=== PATIENT | female | born 1985 | race Caucasian/White ===

== ENCOUNTER → 2016-08-22 | Outpatient (REF) | payer BC ==
[2016-08-22 11:00] LABS: BASO % 0.6 % (0.0-1.0); EOS # 0.1 K/mm3 (0.0-0.50); EOS % 2.8 % (0.0-3.0); LARGE UNSTAINED CELL # 0.1 K/mm3 (0.0-0.4); LARGE UNSTAINED CELL % 1.8 % (0.0-4.0); LYMPH # 1.4 K/mm3 (1.5-4.5); LYMPH % 27.2 % (24.0-44.0); MEAN CORPUSCULAR HEMOGLOBIN 28.5 pg (27.0-33.0); MEAN CORPUSCULAR HGB CONC 33.6 g/dl (32.0-36.5); MEAN CORPUSCULAR VOLUME 84.8 fl (80.0-96.0); MONO # 0.3 K/mm3 (0.0-0.8); MONO % 6.4 % (0.0-5.0); NEUTROPHILS # 2.9 K/mm3 (1.8-7.7); NEUTROPHILS % 61.2 % (36.0-66.0); PLATELET COUNT, AUTOMATED 179 k/mm3 (150-450); RED CELL DISTRIBUTION WIDTH 12.3 % (11.5-14.5); WHITE BLOOD COUNT 4.7 K/mm3 (4.0-10.0)
[2016-08-22 11:07] LABS: ANION GAP 4 MEQ/L (8-16); BLOOD UREA NITROGEN 15 MG/DL (7-18); CALCIUM LEVEL 8.2 MG/DL (8.5-10.1); CARBON DIOXIDE LEVEL 30 MEQ/L (21-32); CHLORIDE LEVEL 108 MEQ/L (98-107); CREATININE FOR GFR 0.64 MG/DL (0.55-1.02); FREE T4 1.03 NG/DL (0.76-1.46); GLOMERULAR FILTRATION RATE > 60.0 (>60); GLUCOSE, FASTING 83 MG/DL (70-105); MAGNESIUM LEVEL 2.4 MG/DL (1.8-2.4); POTASSIUM SERUM 4.1 MEQ/L (3.5-5.1); SODIUM LEVEL 142 MEQ/L (136-145)
== END ==
LOC: M SFHCPLAZ 08:09
PROVIDERS: ATTEND Nurse Practitioner Family
DX: R53.83 Other fatigue (principal); R00.2 Palpitations

== ENCOUNTER → 2017-09-11 | Outpatient (REF) | payer BC ==
[2017-09-11 11:26] LABS: BASO % 0.4 % (0.0-1.0); EOS # 0.1 10^3/uL (0.0-0.50); EOS % 2.2 % (0.0-3.0); HEMOGLOBIN 14.5 g/dl (12.0-16.0); IMMATURE GRANULOCYTE % 0.2 % (0-3.0); LYMPH # 1.4 10^3/uL (1.5-4.5); LYMPH % 29.4 % (24.0-44.0); MEAN CORPUSCULAR HEMOGLOBIN 28.3 pg (27.0-33.0); MEAN CORPUSCULAR VOLUME 85.8 fl (80.0-96.0); MONO # 0.3 10^3/uL (0.0-0.8); MONO % 5.5 % (0.0-5.0); NEUTROPHILS # 3.1 10^3/uL (1.8-7.7); NEUTROPHILS % 62.3 % (36.0-66.0); PLATELET COUNT, AUTOMATED 202 10^3/uL (150-450); RED BLOOD COUNT 5.13 10^6/uL (4.00-5.40); RED CELL DISTRIBUTION WIDTH 12.3 % (11.5-14.5); WHITE BLOOD COUNT 4.9 10^3/uL (4.0-10.0)
[2017-09-11 11:53] LABS: ALBUMIN 4.1 GM/DL (3.2-5.2); ALBUMIN/GLOBULIN RATIO 1.52 (1.00-1.93); ALKALINE PHOSPHATASE 41 U/L (45-117); ALT/SGPT 21 U/L (12-78); ANION GAP 10 MEQ/L (8-16); AST/SGOT 10 U/L (7-37); BILIRUBIN,TOTAL 0.7 MG/DL (0.2-1.0); BLOOD UREA NITROGEN 11 MG/DL (7-18); CALCIUM LEVEL 8.4 MG/DL (8.5-10.1); CARBON DIOXIDE LEVEL 25 MEQ/L (21-32); CHLORIDE LEVEL 106 MEQ/L (98-107); CHOLESTEROL LEVEL 151 MG/DL (<200); CHOLESTEROL RISK RATIO 2.696 (<5); CREATININE FOR GFR 0.59 MG/DL (0.55-1.30); FREE T4 1.22 NG/DL (0.76-1.46); GLOMERULAR FILTRATION RATE > 60.0 (>60); GLUCOSE, FASTING 76 MG/DL (70-100); HDL CHOLESTEROL 56 MG/DL (>40); NON-HDL-C 95 MG/DL; POTASSIUM SERUM 3.9 MEQ/L (3.5-5.1); SODIUM LEVEL 141 MEQ/L (136-145); TOTAL PROTEIN 6.8 GM/DL (6.4-8.2); TRIGLYCERIDES LEVEL 55 MG/DL (<150)
[2017-09-11 12:26] LABS: TOTAL 25(OH) VITAMIN D 35.1 NG/ML (30.0-100.0)
== END ==
LOC: M SFHCPLAZ 08:32
DX: Z00.00 Encounter for general adult medical examination without abnormal findings (principal); F41.9 Anxiety disorder, unspecified; Z13.220 Encounter for screening for lipoid disorders; E55.9 Vitamin D deficiency, unspecified
CPT/HCPCS: 84443

== ENCOUNTER → 2017-11-04 | Outpatient (CLI) | payer BC | LOC: M RAD 10:10 | DX: N63.42 Unspecified lump in left breast, subareolar (principal) | CPT/HCPCS: 77065 ==

== ENCOUNTER → 2018-04-16 | Outpatient (REF) | payer BC | LOC: M SFHCPLAZ 16:18 | DX: Z53.9 Procedure and treatment not carried out, unspecified reason (principal) ==

== ENCOUNTER → 2018-04-17 | Outpatient (REF) | payer BC ==
[2018-04-17 12:23] LABS: BASO % 0.3 % (0.0-1.0); EOS # 0.2 10^3/uL (0.0-0.50); EOS % 3.3 % (0.0-3.0); HEMATOCRIT 41.1 % (36.0-47.0); HEMOGLOBIN 13.4 g/dl (12.0-15.5); IMMATURE GRANULOCYTE % 0.2 % (0-3.0); LYMPH # 1.2 10^3/uL (1.5-4.5); LYMPH % 20.1 % (24.0-44.0); MEAN CORPUSCULAR HEMOGLOBIN 28.6 pg (27.0-33.0); MEAN CORPUSCULAR HGB CONC 32.6 g/dl (32.0-36.5); MEAN CORPUSCULAR VOLUME 87.8 fl (80.0-96.0); MONO # 0.5 10^3/uL (0.0-0.8); MONO % 8.8 % (0.0-5.0); NEUTROPHILS # 3.9 10^3/uL (1.8-7.7); NEUTROPHILS % 67.3 % (36.0-66.0); PLATELET COUNT, AUTOMATED 182 10^3/uL (150-450); RED BLOOD COUNT 4.68 10^6/uL (4.00-5.40); RED CELL DISTRIBUTION WIDTH 12.1 % (11.5-14.5); WHITE BLOOD COUNT 5.8 10^3/uL (4.0-10.0)
[2018-04-17 13:07] LABS: ALBUMIN 3.6 GM/DL (3.2-5.2); ALBUMIN/GLOBULIN RATIO 1.29 (1.00-1.93); ALKALINE PHOSPHATASE 44 U/L (45-117); ALT/SGPT 21 U/L (12-78); AMYLASE 46 U/L (25-115); ANION GAP 9 MEQ/L (8-16); AST/SGOT 13 U/L (7-37); BILIRUBIN,TOTAL 0.5 MG/DL (0.2-1.0); BLOOD UREA NITROGEN 16 MG/DL (7-18); CALCIUM LEVEL 8.4 MG/DL (8.5-10.1); CARBON DIOXIDE LEVEL 26 MEQ/L (21-32); CHLORIDE LEVEL 107 MEQ/L (98-107); CREATININE FOR GFR 0.72 MG/DL (0.55-1.30); GLOMERULAR FILTRATION RATE > 60.0 (>60); GLUCOSE, FASTING 62 MG/DL (70-100); LIPASE 149 U/L (73-393); POTASSIUM SERUM 4.2 MEQ/L (3.5-5.1); SODIUM LEVEL 142 MEQ/L (136-145); TOTAL PROTEIN 6.4 GM/DL (6.4-8.2)
== END ==
LOC: M SFHCPLAZ 09:17
DX: R10.12 Left upper quadrant pain (principal); R10.13 Epigastric pain
CPT/HCPCS: 82150

== ENCOUNTER → 2018-04-30 | Outpatient (CLI) | payer BC ==
[~2018-04-30] MED LIST: GASTROGRAFIN SOLUTION 30ML (Q9963) As Ordered; ISOVUE-370 76% 100ML VIAL (Q9967) As Ordered
== END ==
LOC: M RAD 12:28
DX: R10.12 Left upper quadrant pain (principal); R10.13 Epigastric pain; N83.202 Unspecified ovarian cyst, left side
CPT/HCPCS: Q9963

== ENCOUNTER → 2018-09-09 | Outpatient (CLI) | payer BC ==
--- NOTE | 2018-09-09 16:02 | REP ---
Digital diagnostic bilateral mammography with CAD and 3-D tomography as well as focused left breast sonography: History: Lump in the far medial left breast near the sternum 0.5 cm in diameter, cystic in character on palpation. The patient reports a pea-sized lump in this location at approximately 9 o'clock position at the edge of the breast. Comparison mammography and sonography from November 04, 2017 reported dilated retroareolar ducts in the left breast by ultrasound with some internal debris. A follow-up study was recommended. Mammographic findings: A skin marker is affixed to the skin at the site of the palpable lump. Magnified focal spot compression CC, MLO and true ML views of the left breast were obtained in addition to routine views of both breasts. Moderate scattered fibroglandular elements are again seen. No neodensity is seen at the site of the palpable lump mammographically or elsewhere in either breast. Subareolar soft tissues are unremarkable, symmetric, and unchanged. No worrisome skin changes appreciated. Sonographic findings: Focused subareolar sonography is performed as well as sonographic evaluation of the palpable lump 9 o'clock near the chest wall. By ultrasound at 9 o'clock at the level of palpable lump, a normal blood vessel is seen. No mass is seen. Normal costal margin is noted. No cyst is seen. In the retroareolar region, there are minimally dilated ducts seen. The previously noted area of dilated duct containing debris or echogenic material is no longer apparent. Impression: BIRADS category 1 negative mammographic and sonographic findings. No suspicious abnormality. Clinical follow-up is advised. BIRADS 1: BI-RADS ACR category 2 mammogram. Benign Finding. This patient's estimated Tyrer-Cuzick lifetime risk assessment for the breast cancer is 15.1 %. This mammogram was interpreted with the aid of an FDA-approved computer-aided detection system. The patient states she had a clinical breast exam in August 2018. The patient letter being requested is m#2 . Electronically Signed by Senthil Lynch MD 09/09/2018 07:53 P
== END ==
LOC: M RAD 09:03
PROVIDERS: ATTEND Nurse Practitioner Women's Health
DX: N63.22 Unspecified lump in the left breast, upper inner quadrant (principal)
CPT/HCPCS: 76642; 77066; G0279

== ENCOUNTER 2018-11-18 01:16 | Emergency (ER) | payer BC ==
[~2018-11-18] VITALS: Ht 167.6 cm; Wt 77.3 kg
[2018-11-18] MEDS ORDERED: ESCITALOPRAM (01:21)
[2018-11-18] MEDS ORDERED: OMEP-221 (01:21)
[2018-11-18] MEDS ORDERED: NORE0.353 (01:21)
[2018-11-18] MEDS ORDERED: AMOX500T PO (04:14)
[2018-11-18] MEDS ORDERED: AMOXICILLIN 500 MG CAP PO ONE (04:15)
[2018-11-18 04:46] VITALS: BP 120/76
--- NOTE | 2018-11-18 08:36 | REP ---
Chest x-ray: Two views. History: Cough and shortness of breath . Comparison study: Comparison study June 06, 2016 . Findings: The lungs are well inflated and free of infiltrate. The pleural angles are sharp. The heart size is normal. Pulmonary vasculature is not increased. No significant bony abnormality is seen. Impression: Negative chest x-ray. Electronically Signed by Senthil Lynch MD 11/18/2018 08:28 A
== END 2018-11-18 04:49 | disposition home or self-care (01) ==
LOC: M ED 01:16
DX: H66.92 Otitis media, unspecified, left ear (principal); F41.1 Generalized anxiety disorder; K21.9 Gastro-esophageal reflux disease without esophagitis; Z79.899 Other long term (current) drug therapy

== ENCOUNTER → 2019-03-25 | Outpatient (CLI) | payer BC ==
[~2019-03-25] MED LIST changes: +AMOX500T PO; +ESCITALOPRAM; -GASTROGRAFIN SOLUTION 30ML (Q9963) As Ordered; -ISOVUE-370 76% 100ML VIAL (Q9967) As Ordered; +NORE0.353; +OMEP-221
--- NOTE | 2019-03-25 14:22 | REP ---
Maxillofacial CT study without contrast: History: Chronic maxillary sinusitis. CT findings: Preliminary digital cloth designer radiographs are unremarkable. There is mild mucosal thickening affecting the right frontal sinus. Ethmoid and sphenoid air cells are clear. There is partial opacification of the maxillary sinuses bilaterally with fluid and mucous retention cysts in the left maxillary sinus and a small mucous retention cyst in the right maxillary sinus. Mastoid aeration is normal and symmetric. The bony nasal septum deviates somewhat to the right with a small beak. Nasal turbinate and soft tissues are unremarkable. There is mucosal thickening narrowing the ostium of the ostiomeatal complexes bilaterally. Nasal ethmoid recesses are clear. There is no evidence of intraorbital abnormality. The visualized intracranial structures are unremarkable. Impression: Bilateral maxillary sinus disease with ostiomeatal complex mucosal thickening bilaterally. Rightward nasal septal deviation. Mild mucosal thickening in the right frontal sinus. Electronically Signed by Senthil Lynch MD 03/25/2019 04:03 P
== END ==
LOC: M RAD 09:16
PROVIDERS: ATTEND Nurse Practitioner Family
DX: J32.0 Chronic maxillary sinusitis (principal); J34.2 Deviated nasal septum; J32.1 Chronic frontal sinusitis

== ENCOUNTER → 2019-08-11 | Outpatient (REF) | payer BC ==
[2019-08-11 12:08] LABS: ALT/SGPT 23 U/L (12-78); BILIRUBIN,TOTAL 0.4 MG/DL (0.2-1.0); BLOOD UREA NITROGEN 18 MG/DL (7-18); CALCIUM LEVEL 8.3 MG/DL (8.5-10.1); CARBON DIOXIDE LEVEL 30 MEQ/L (21-32); CHLORIDE LEVEL 109 MEQ/L (98-107); CHOLESTEROL LEVEL 161 MG/DL (<200); CHOLESTEROL RISK RATIO 3.156 (<5); CREATININE FOR GFR 0.72 MG/DL (0.55-1.30); GLOMERULAR FILTRATION RATE > 60.0 (>60); GLUCOSE, FASTING 92 MG/DL (70-100); HDL CHOLESTEROL 51 MG/DL (>40); LDL CHOLESTEROL 99 MG/DL (<100); NON-HDL-C 110 MG/DL; POTASSIUM SERUM 4.2 MEQ/L (3.5-5.1); SODIUM LEVEL 142 MEQ/L (136-145); TOTAL PROTEIN 6.6 GM/DL (6.4-8.2); TRIGLYCERIDES LEVEL 53 MG/DL (<150)
== END ==
LOC: M SFHCLERA 08:01
PROVIDERS: ATTEND Family Medicine
DX: Z13.220 Encounter for screening for lipoid disorders (principal); Z13.1 Encounter for screening for diabetes mellitus; Z80.51 Family history of malignant neoplasm of kidney

== ENCOUNTER → 2019-08-24 | Outpatient (REF) | payer BC ==
[2019-08-24 13:40] LABS: APPEARANCE, URINE CLEAR (CLEAR); BACTERIA, URINE AUTO NEGATIVE (NEGATIVE); BILIRUBIN, URINE AUTO NEGATIVE (NEGATIVE); BLOOD, URINE BLOOD NEGATIVE (NEGATIVE); COLOR, URINE YELLOW (YELLOW); GLUCOSE, URINE (UA) AUTO NEGATIVE (NEGATIVE); KETONE, URINE AUTO TRACE mg/dL (NEGATIVE); LEUKOCYTE ESTERASE, URINE AUTO NEGATIVE (NEGATIVE); NITRITE, URINE AUTO NEGATIVE (NEGATIVE); PROTEIN, URINE AUTO NEGATIVE (NEGATIVE); RBC, URINE AUTO 0 /HPF (0-3); SQUAMOUS EPITHELIAL CELL UR AU 0 /HPF (0-6); UROBILINOGEN, URINE AUTO 0.2 mg/dL (0.0-2.0); WBC, URINE AUTO 0 /HPF (0-3)
== END ==
LOC: M SFHCLERA 11:32
PROVIDERS: ATTEND Family Medicine
DX: Z13.220 Encounter for screening for lipoid disorders (principal); Z13.1 Encounter for screening for diabetes mellitus; Z80.51 Family history of malignant neoplasm of kidney

== ENCOUNTER → 2019-11-11 | Outpatient (REF) | payer BC | LOC: M SFHCPLAZ 11:34 | PROVIDERS: ATTEND Family Medicine | DX: E55.9 Vitamin D deficiency, unspecified (principal) ==

== ENCOUNTER → 2020-04-01 | Outpatient (REF) | payer BC ==
[2020-04-01 14:13] LABS: HEMATOCRIT 39.6 % (36.0-47.0); HEMOGLOBIN 13.1 g/dl (12.0-15.5); MEAN CORPUSCULAR HEMOGLOBIN 28.9 pg (27.0-33.0); MEAN CORPUSCULAR HGB CONC 33.1 g/dl (32.0-36.5); MEAN CORPUSCULAR VOLUME 87.4 fl (80.0-96.0); PLATELET COUNT, AUTOMATED 189 10^3/uL (150-450); RED BLOOD COUNT 4.53 10^6/uL (4.00-5.40); WHITE BLOOD COUNT 7.5 10^3/uL (4.0-10.0)
[2020-04-01 15:26] LABS: HEPATITIS C VIRUS ABY INDEX 0.1 INDEX (<0.8); HIV 1&2 SCREEN CENTAUR NEGATIVE (NEGATIVE)
== END ==
LOC: M PLALAB 11:11
PROVIDERS: ATTEND Advanced Practice Midwife
DX: O09.521 Supervision of elderly multigravida, first trimester (principal); Z3A.00 Weeks of gestation of pregnancy not specified

== ENCOUNTER → 2020-06-01 | Outpatient (REF) | payer BC | LOC: M SFHCWAGY 13:14 | PROVIDERS: ATTEND Specialist | DX: R30.0 Dysuria (principal) ==

== ENCOUNTER → 2020-06-14 | Outpatient (REF) | payer BC | LOC: M PLALAB 13:44 | PROVIDERS: ATTEND Obstetrics & Gynecology | DX: Z34.92 Encounter for supervision of normal pregnancy, unspecified, second trimester (principal); Z3A.19 19 weeks gestation of pregnancy ==

== ENCOUNTER → 2020-06-15 | Outpatient (CLI) | payer BC ==
--- NOTE | 2020-06-15 16:50 | REP ---
INDICATION: ANATOMY COMPARISON: None. TECHNIQUE: Transabdominal obstetrical ultrasound with color Doppler evaluation. FINDINGS: Examination demonstrates a single live intrauterine in transverse (head to maternal right) presentation. motion is identified by technologist. Placenta is noted anterior and grade 1 without evidence for placenta previa or abruption. Amniotic fluid volume is normal. Cervix measures 4.7 cm in length and appears closed.. Gestational age by LMP 19 weeks 3 days with ERENDIRA 11/06/2020. Gestational age by current measurements 19 weeks 4 days with ERENDIRA 11/05/2020. FHR equals 149 beats per minute. BPD: 4.7 cm 20 weeks 2 days HC: 17.1 cm 19 weeks 5 days AC: 13.6 cm 19 weeks 0 days FL: 3.1 cm 19 weeks 4 days HL: 2.9 cm 19 weeks 3 days HC/AC: 1.26 Estimated weight 287 grams (43rdpercentile). Anatomical assessment demonstrates normal structures including cranium, choroid plexus, cavum, cerebellum/posterior fossa, facial features, lungs, four-chamber heart/ventricular outflow tracts, diaphragm, stomach, cord insertion/three-vessel cord, kidneys/bladder, spine, and extremities. IMPRESSION: Single live intrauterine in transverse lie demonstrating appropriate estimated weight. Anatomical assessment is complete and normal. <Electronically signed by Kevin Tucker > 06/15/20 [id number]
== END ==
LOC: M WHC 12:48
PROVIDERS: ATTEND Advanced Practice Midwife
DX: Z36.9 Encounter for antenatal screening, unspecified (principal); Z3A.20 20 weeks gestation of pregnancy

== ENCOUNTER → 2020-06-27 | Outpatient (CLI) | payer BC | LOC: M LAB 06:38 | PROVIDERS: ATTEND Obstetrics & Gynecology | DX: R73.09 Other abnormal glucose (principal) ==

== ENCOUNTER → 2020-06-30 | Outpatient (REF) | payer BC ==
[2020-06-30 15:16] LABS: BASO % 0.2 % (0.0-1.0); EOS # 0.1 10^3/uL (0.0-0.5); EOS % 0.9 % (0.0-3.0); HEMATOCRIT 35.9 % (36.0-47.0); HEMOGLOBIN 11.7 g/dl (12.0-15.5); LYMPH # 1.1 10^3/uL (1.5-5.0); LYMPH % 12.8 % (24.0-44.0); MEAN CORPUSCULAR HEMOGLOBIN 29.6 pg (27.0-33.0); MEAN CORPUSCULAR HGB CONC 32.6 g/dl (32.0-36.5); MEAN CORPUSCULAR VOLUME 90.9 fl (80.0-96.0); MONO # 0.3 10^3/uL (0.0-0.8); MONO % 3.9 % (0.0-5.0); NEUTROPHILS # 6.7 10^3/uL (1.5-8.5); PLATELET COUNT, AUTOMATED 188 10^3/uL (150-450); RED BLOOD COUNT 3.95 10^6/uL (4.00-5.40); WHITE BLOOD COUNT 8.2 10^3/uL (4.0-10.0)
[2020-06-30 15:56] LABS: FREE T4 1.14 NG/DL (0.76-1.46); THYROID STIMULATING HORMONE 1.21 uIU/ML (0.358-3.740)
== END ==
LOC: M PLALAB 13:29
PROVIDERS: ATTEND Advanced Practice Midwife
DX: F41.9 Anxiety disorder, unspecified (principal)

== ENCOUNTER → 2020-07-28 | Outpatient (REF) | payer BC ==
[2020-07-28 11:10] LABS: BASO % 0.4 % (0.0-1.0); EOS # 0.1 10^3/uL (0.0-0.5); EOS % 0.6 % (0.0-3.0); HEMATOCRIT 35.6 % (36.0-47.0); HEMOGLOBIN 11.7 g/dl (12.0-15.5); LYMPH # 1.1 10^3/uL (1.5-5.0); LYMPH % 13.6 % (24.0-44.0); MEAN CORPUSCULAR HEMOGLOBIN 29.8 pg (27.0-33.0); MEAN CORPUSCULAR HGB CONC 32.9 g/dl (32.0-36.5); MEAN CORPUSCULAR VOLUME 90.8 fl (80.0-96.0); MONO # 0.4 10^3/uL (0.0-0.8); MONO % 5.1 % (0.0-5.0); NEUTROPHILS # 6.2 10^3/uL (1.5-8.5); NEUTROPHILS % 79.8 % (36.0-66.0); PLATELET COUNT, AUTOMATED 194 10^3/uL (150-450); RED BLOOD COUNT 3.92 10^6/uL (4.00-5.40); WHITE BLOOD COUNT 7.7 10^3/uL (4.0-10.0)
[2020-07-28 11:34] LABS: FREE T4 1.03 NG/DL (0.76-1.46); THYROID STIMULATING HORMONE 1.22 uIU/ML (0.358-3.740)
== END ==
LOC: M PLALAB 08:06
PROVIDERS: ATTEND Advanced Practice Midwife
DX: O99.342 Other mental disorders complicating pregnancy, second trimester (principal); Z3A.21 21 weeks gestation of pregnancy; F41.9 Anxiety disorder, unspecified
CPT/HCPCS: 36415; 82746; 82950; 84439; 84443; 85025; 86850; 86900; 86901; J2790

== ENCOUNTER 2020-09-25 16:37 | Emergency (ER) | payer BC ==
[~2020-09-25] VITALS: Ht 167.6 cm; Wt 80.4 kg
[2020-09-25] MEDS ORDERED: PEPC1TAB5 PO (16:50)
[2020-09-25] MEDS ORDERED: SERT25TA21 (16:50)
[2020-09-25] MEDS ORDERED: BOOSTRIX/ADACEL VACCINE (DIPHTH/PERTUSS/ACELL/TETANUS) 0.5ML SYR IM ONE (18:40)
[2020-09-25 19:02] VITALS: BP 129/73
== END 2020-09-25 19:03 | disposition home or self-care (01) ==
LOC: M ED 16:37
DX: S61.101A Unspecified open wound of right thumb with damage to nail, initial encounter (principal); W27.4XXA Contact with kitchen utensil, initial encounter; Y92.019 Unspecified place in single-family (private) house as the place of occurrence of the external cause; Y93.9 Activity, unspecified; Y99.9 Unspecified external cause status; K21.9 Gastro-esophageal reflux disease without esophagitis; Z79.899 Other long term (current) drug therapy

== ENCOUNTER → 2020-09-28 | Outpatient (CLI) | payer BC ==
[~2020-09-28] MED LIST changes: +PEPC1TAB5 PO; +SERT25TA21
--- NOTE | 2020-09-28 14:20 | REP ---
INDICATION: 34 WKS PREG NON REACTIVE NST BPP W/ DOPPLER. COMPARISON: 06/15/2020. TECHNIQUE: Real-time sonographic evaluation of the gravid uterus performed. FINDINGS: Estimated gestational age is34 weeks 3 days, EDC 11/06/2020. Presentation: Cephalic Placenta anterior, grade grade 1-2, without evidence of placenta previa. heart rate is recorded at 131 beats per minute. heart arrhythmia noted. Amniotic fluid is subjectively normal. LIU 20.5, normal range 8.0-24.8 Biophysical profile score 8/8. Closed cervical length is measured at 3.6 cm. IMPRESSION: Viable single intrauterine gestation as above. <Electronically signed by Jerardo Trammell > 09/28/20 [id number]
== END ==
LOC: M RAD 13:12
PROVIDERS: ATTEND Advanced Practice Midwife
DX: O36.8390 Maternal care for abnormalities of the fetal heart rate or rhythm, unspecified trimester, not applicable or unspecified (principal); Z3A.34 34 weeks gestation of pregnancy

== ENCOUNTER → 2020-10-05 | Outpatient (REF) | payer BC | LOC: M SFHCWAGY 14:53 | PROVIDERS: ATTEND Advanced Practice Midwife | DX: O09.523 Supervision of elderly multigravida, third trimester (principal) ==

== ENCOUNTER 2020-10-18 10:20 | Inpatient (IN) | payer BC ==
[~2020-10-18] VITALS: Ht 167.6 cm; Wt 80.0 kg
[2020-10-18] VITALS (16 sets, daily range): BP systolic 102–121; BP diastolic 53–59
[2020-10-18] MEDS ORDERED: MULTTAB20 PO (10:39)
[2020-10-18] MEDS ORDERED: LACTATED RINGER'S 1000 ML IV STA (11:39)
[2020-10-18] MEDS ORDERED: LR 1,000 ML IV SCH (11:40)
[2020-10-18] MEDS ORDERED: ceFAZolin SOD 2 GM in IV 1 EA IV ONE (12:00)
[2020-10-18] MEDS ORDERED: BICITRA 30ML SOLN UDC PO ONE (12:00)
[2020-10-18 12:10] LABS: HEMATOCRIT 37.6 % (36.0-47.0); HEMOGLOBIN 12.8 g/dl (12.0-15.5); MEAN CORPUSCULAR HEMOGLOBIN 30.7 pg (27.0-33.0); MEAN CORPUSCULAR VOLUME 90.2 fl (80.0-96.0); PLATELET COUNT, AUTOMATED 151 10^3/uL (150-450); RED BLOOD COUNT 4.17 10^6/uL (4.00-5.40); WHITE BLOOD COUNT 8.2 10^3/uL (4.0-10.0)
[2020-10-18] MEDS ORDERED: ACETAMINOPHEN 500 MG TAB PO PRN ×2 (13:50→23:30)
--- NOTE | 2020-10-18 19:54 | HPEPDOC ---
Obstetrical History & Physical General Date of Admission Oct 18, 2020 at 11:06 History of Present Illness Maya is a 34yo with SIUP at 37w2d by lmp c/w early u/s presenting to L&D from clinic for arrhythmia. She was being seen for BPP which she receives weekly since being diagnosed with arrhythmia at 34wk- the BPP was 8/8, but when the medication reconciliation technician was noting the FHR, it was in the 80's. So she was sent for prolonged monitoring and formulation of delivery plan. She is scheduled to be seen for the arrhythmia at the [facility] in a week. She has no complaints today. Feels great movement, no loss of fluid, no regular/painful ctx, no vb. Chief Complaint: Observation Information Provided By: Patient Care Care: Good Care Dating Final EDC: November 06, 2020 Final EDC by: LMP, 1st trimester (US) Antepartum Course Diagnos(e)s AMA (age 34), anxiety (takes zoloft 25mg qd), palpitations (referred to Dr. Lin garcia and had Holter monitoring with no need for medications or further interventions), arrhythmia noted at 34wk on monitoring, Rh negative received rhogam early and at 28wk Past Medical History Past Obstetrical History : Past Obstetrical History: Multigravida (02/2014 male 7lb9oz, 08/2015 female 8lb1oz social IOL) [employer] SERVICE SUPERVISOR History: No pertinent history Past Medical History Medical History seasonal allergies, rosacea, vitamin D deficiency, occasional ocular migraines, anxiety Surgical History: Denies/None Family History Significant Family History: Other (father related to renal cancer) Social History Marital Status: Family situation: Spouse/partner home Psychosocial History: Anxiety * Smoker: former Smoker (quit in 2012) Alcohol: Denies Drugs: denies Allergies Coded Allergies: No Known Allergies (Unverified , 11/18/18) Medications Scheduled Famotidine (Pepcid) 20 Mg Tablet, 20 MG PO DAILY No122/Iron/Folic Acid ( Multi Tablet) 1 Each Tablet, 1 TAB PO DAILY Miscellaneous Medications Sertraline HCl (Sertraline HCl) 25 Mg Tablet Physical Examination Physical Examination GENERAL: Alert and oriented times three. ABDOMEN: Gravid and non-tender to touch. FETUS: Is vertex (VTX) by sterile vaginal examination (SVE) EXTREMITIES: No edema of BLE Vital Signs/I&O Vital Signs Date Time Temp Pulse Resp B/P (MAP) Pulse Ox O2 Delivery O2 Flow Rate FiO2 10/18/20 18:11 99.9 92 18 109/56 (73) Laboratory Data 24H LABS Laboratory Tests 2 10/18/20 11:10: Serology Scanned Report Hepatitis B Testing 10/18/20 11:55: Nucleated Red Blood Cells % (auto) 0.0, Syphilis Serology NONREACTIVE CBC/BMP Laboratory Tests 10/18/20 11:55 Pertinent Laboratoy Data Blood Type: A- RBC Antibody Screen: Positive (anti-D) HIV: Negative Hepatitis B: Negative Hepatitis C: Negative Rapid Plasma Reagin: Nonreactive Rubella: Immune Chlamydia/Gonorrhea: Negative Group B Streptococcus: Negative Glucose Tolerance Test: 93 Anatomy Ultrasound Ultrasound Date: Jun 15, 2020 Placenta Location: Anterior Normal Anatomy: Yes Placenta Previa: No Other Ultrasounds 10/18: BPP 8/8, LIU 15.1cm, slightly elevated SD ratio (3.72), FHR 75-81 bpm Steroid Therapy Steroid Therapy: No Vaginal Examination Dilation: 4 cm Effacement: 50% Station: -2 Cervical Consistency: Medium Cervical Position: Middle Presentation: Cephalic presentation Assessment Heart Rate (FHR): 140 (arrythmia) Variability: Moderate Accelerations: Positive Decelerations: Other (arrhythmia with dropped beats) Tocometer Contractions: Yes Frequency: regular, every 3-7 min. Duration: greater than 60 seconds Strength: palpated as mild Assessment/Plan Assessment Maya is a 34yo with SIUP at 37w2d by lmp c/w early u/s with arrhythmia, first noted at 34wk and still persisting. Vitals wnl, afebrile. Cat II FHRT only for arrhythmia- when there is a consistent tracing, it appears there are accels with mod tru and no decels (just dropped beats). Cephalic. SCE /-2. Plan Admit and orient. Counseled and consented. I spoke with Dr. Almaraz about Maya and the possible options for monitoring and delivery. I then had a long discussion with patient regarding the options. Ultimately, I made my recommendation for delivery today given the limitation of our monitoring and the fact that she is full term at 37+ weeks. I discussed the option of discharge with follow up at [facility] next week as previously planned, but she was in agreement with plan for delivery today. We then discussed the possibility of PLTCS vs IOL. She is a multip having 2 prior NSVDs and her SCE is 4/50/-2 which is very favorable. Given these findings, I discussed that we could attempt AROM with placement of FSE right at the start and see if her body naturally proceeds into labor (discussed we may not be able to augment with pitocin if tracing is not deemed reassuring enough 2/2 arrhyth stacy). We also discussed the option of proceeding to PLTCS and avoiding the need for monitoring during delivery altogether. We discussed the limitations of monitoring at length and what I would or would not be comfortable watching on the monitor if she chose IOL. After great consideration and discussion with her , ultimately Maya chose to attempt IOL. AROM was performed with clear fluid noted and FSE was placed. After placement of FSE, it became much easier to monitor the FHR and the appearance of the arrhythmia improved. Will continue to closely observe and further augment labor if possible and necessary. Diet: NPO Group B Streptococcus (GBS) negative Labs and intravenous (IV) per unit protocol. Counseled on AROM and augmentation/induction of labor (IOL). Lactated Ringers (LR): Bolus 800 mL, then at 125 mL/hr in anticipation of epidural. Anticipate normal spontaneous delivery () C-S as appropriate MD Elenita Kasper Katrina D MD Oct 18, 2020 19:54
[2020-10-18] MEDS ORDERED: OXYTOCIN DRIP 30 UNITS in IV 1 EA IV SCH ×2 (20:45→23:30)
--- NOTE | 2020-10-18 20:45 | IPNPDOC ---
Text Note Date of Service The patient was seen on 10/18/20. NOTE Intrapartum Note Maya is doing well, feels contractions as mildly increasing in intensity but not yet painful. Vitals wnl, afebrile Cat I FHRT overall with bl 140, +accels, -decels, mod tru (occasional dropped beats) Ctx q3min SCE: 5/50/-2, posterior. Fluid still clear. Plan to start pitocin now that tracing is clearly and reliably reassuring, titrate per protocol Continue to closely observe Safe to proceed Plan to recheck in 2-4hr or earlier as indicated Erma Kwong MD VS,Jaycob, I+O VS, Jaycob I+O Laboratory Tests 10/18/20 11:55 Vital Signs Date Time Temp Pulse Resp B/P (MAP) Pulse Ox O2 Delivery O2 Flow Rate FiO2 10/18/20 19:11 67 121/59 (79) 10/18/20 18:11 99.9 18 Erma Kwong MD Oct 18, 2020 20:45
[2020-10-18] MEDS ORDERED: ONDANSETRON 4MG/2ML VIAL IV ONE (22:20)
[2020-10-18] MEDS ORDERED: LIDOCAINE 1% MDV 20ML VIAL As Ordered ONE (22:52)
--- NOTE | 2020-10-18 23:28 | DNPDOC ---
[facility] Delivery Note Delivery Note DATE OF DELIVERY: 10/18/20 PREDELIVERY DIAGNOSIS: 37w2d IOL for arrhythmia POST DELIVERY DIAGNOSIS: Delivered. PROCEDURE: Spontaneous vaginal delivery SMOKING PIPE REPAIRER: Dr. Erma Kwong MD ANESTHESIA: 1% lidocaine for repair ESTIMATED BLOOD LOSS: 200 mL. FINDINGS: 6 pound 3 ounce (2820g) male infant, Score 8/9 DELIVERY SUMMARY: Maya is a 34yo [id number] s/p uncomplicated at 2241 on 10/18/20 when undergoing IOL for arrhythmia at 37w2d. Initial SCE was 3/50/-2, AROM was performed with FSE placed. After approx 6 hours, IV pitocin was started and only titrated up to 4mu before patient felt sudden unavoidable urge to push. I was called to the room, and the patient had just delivered prior to my arrival with one push. When I came in, baby was on maternal abdomen and vigorous. Apgars 8/9. Cord was clamped x2 and cut by FOB. Cord blood collected for Rh neg blood type. With traction on the cord and firm pressure on the uterus just above the pubic bone, placenta delivered spontaneously and intact with 3 vessel centrally inserted cord. There appears to be a succenturiate lobe. Fundal massage performed, pitocin given per protocol via IV and fundus was then firm at u-1cm with hemostasis noted. Inspection of perineum and vagina revealed a small 2mll and right labial superficial abrasion. 1% lidocaine was injected and the 2mll was repaired in routine fashion with excellent reapproximation and hemostasis and one suture was placed to reapproximate the right labial abrasion. All counts were correct x2. Mom and infant were doing well when I left the room. MD Elenita Kasper Katrina D MD Oct 18, 2020 23:28
[2020-10-18] MEDS ORDERED: IBUPROFEN 800 MG TAB PO PRN (23:30)
[2020-10-18] MEDS ORDERED: DOCUSATE SODIUM 100MG CAPSULE PO PRN (23:30)
[2020-10-18] MEDS ORDERED: ACETAMINOPHEN TAB 650MG DOSE (2X325MG) PO PRN (23:30)
[2020-10-18] MEDS ORDERED: RHOGAM 300 MCG (1500 IU) INJ (J2790) IM SCH (23:30)
[2020-10-18] MEDS ORDERED: DIBUCAINE 1% OINTMENT 30GM TOP PRN (23:30)
[2020-10-18] MEDS ORDERED: MEASLES,MUMPS,RUBELLA VACCINE INJ (MMR-II) (90707) SC SCH (23:30)
[2020-10-18] MEDS ORDERED: LIDOCAINE 1% MDV 20ML VIAL INFIL ONE (23:30)
[2020-10-18] MEDS ORDERED: IBUPROFEN 600MG TAB PO PRN (23:30)
[2020-10-19 00:03] VITALS: BP 119/56
[2020-10-19 00:52] VITALS: BP 109/54
[2020-10-19 01:49] VITALS: BP 107/51
[2020-10-19 03:25] VITALS: BP 127/60
[2020-10-19] MEDS ORDERED: diphenhydrAMINE 50MG/ML VIAL (J1200) IV ONE (03:40)
[2020-10-19] MEDS ORDERED: diphenhydrAMINE 50MG/ML VIAL (J1200) As Ordered ONE (03:54)
[2020-10-19 06:32] VITALS: BP 111/57
[2020-10-19] MEDS: PRENATAL VITAMINS CHEWABLE TABLET PO SCH (08:28)
--- NOTE | 2020-10-19 08:41 | IPNPDOC ---
Progress Note Date of Service: Oct 19, 2020 Day#: 1 Progress Note PPD 1 SUBJECT: Maya is a 34yo [id number] s/p uncomplicated at 2241 on 10/18/20 when undergoing IOL for arrhythmia at 37w2d, doing well day # 1. She has been ambulating, voiding spontaneously without issue and tolerating regular diet. Breast feeding without issue. Reports lochia is like a normal snow od. No f/c/n/v/CP/SOB. OBJECTIVE: VITAL SIGNS: Within normal limits, afebrile. Alert and oriented times three. Abdomen: Fundus firm at U-2. Soft, NTTP. Extremities: no pain with palpation of calves ASSESSMENT: Maya is a 34yo [id number] s/p uncomplicated at 2241 on 10/18/20 when undergoing IOL for arrhythmia at 37w2d, doing well day # 1. Vitals within normal limits, afebrile, hemodynamically stable with no evidence of infection. PLAN: 1. Routine care 2. Tylenol and Motrin for pain. 3. Encourage breast feeding and ambulation. 4. Regular diet 5. Likely discharge tomorrow if meeting all milestones Erma Kwong MD VS, I&O, 24H, [facility] Vital Signs/I&O Vital Signs Date Time Temp Pulse Resp B/P (MAP) Pulse Ox O2 Delivery O2 Flow Rate FiO2 10/19/20 06:32 99.4 58 18 111/57 (75) 100 10/19/20 01:49 Room Air I&O- Last 24 Hours up to 6 AM 10/19/20 06:00 Intake Total 3624 ml Output Total 1000 ml Balance 2624 ml Laboratory Data 24H LABS Laboratory Tests 2 10/18/20 11:10: Serology Scanned Report Hepatitis B Testing 10/18/20 11:55: Nucleated Red Blood Cells % (auto) 0.0, Syphilis Serology NONREACTIVE 10/19/20 03:18: Bedside Glucose (Misc Panel) 94 CBC/BMP Laboratory Tests 10/18/20 11:55 Erma Kwong MD Oct 19, 2020 08:41
[2020-10-19 18:00] VITALS: BP 118/59
[2020-10-20 06:00] VITALS: BP 109/55
[2020-10-20] MEDS: PRENATAL VITAMINS CHEWABLE TABLET PO SCH (09:57)
[2020-10-20] MEDS ORDERED: IBUP80TA PO (13:41)
[2020-10-20] MEDS ORDERED: ACET-683 PO (13:41)
== END 2020-10-20 14:55 | disposition home or self-care (01) | DRG 560 ==
LOC: M LDO 10:20 → M LDI 11:06 → M OBS 10-19 01:36
PROVIDERS: ADMIT Obstetrics & Gynecology; ATTEND Obstetrics & Gynecology
PROC: 10E0XZZ Delivery of Products of Conception, External Approach (ICD-10-PCS; principal; 2020-10-18)
PROC: 0KQM0ZZ Repair Perineum Muscle, Open Approach (ICD-10-PCS; 2020-10-18)
PROC: 10907ZC Drainage of Amniotic Fluid, Therapeutic from Products of Conception, Via Natural or Artificial Opening (ICD-10-PCS; 2020-10-18)
DX: O76 Abnormality in fetal heart rate and rhythm complicating labor and delivery (principal); F41.9 Anxiety disorder, unspecified; O99.344 Other mental disorders complicating childbirth; Z3A.37 37 weeks gestation of pregnancy; O70.1 Second degree perineal laceration during delivery; Z37.0 Single live birth

== ENCOUNTER → 2020-12-21 | Outpatient (REF) | payer BC ==
[~2020-12-21] MED LIST changes: +ACET-683 PO; +IBUP80TA PO; +MULTTAB20 PO
== END ==
LOC: M SFHCPLAZ 16:49
PROVIDERS: ATTEND Physician Assistant
DX: R30.0 Dysuria (principal)

== ENCOUNTER → 2021-01-09 | Outpatient (CLI) | payer BC ==
--- NOTE | 2021-01-09 16:10 | REP ---
INDICATION: PAIN IN RT ANKLE AND JOINTS OF FOOT. COMPARISON: None. TECHNIQUE: Four views right ankle. FINDINGS: There is no acute fracture or dislocation. There is subcortical rounded lucency in the lateral talar dome approximately 1.2 cm in maximum diameter, which may represent an osteochondral lesion. No other abnormalities are seen. The ankle mortise is anatomic. IMPRESSION: Possible osteochondral lesion lateral talar dome. Recommend MRI to further evaluate. <Electronically signed by Jerardo Trammell > 01/09/21 [id number]
--- NOTE | 2021-01-09 16:12 | REP ---
INDICATION: PAIN IN RT ANKLE AND JOINTS OF FOOT COMPARISON: None. TECHNIQUE: Four views right foot. FINDINGS: There is no evidence of acute fracture, dislocation, or intrinsic bone disease.The joint spaces are unremarkable. IMPRESSION: Negative right foot series. <Electronically signed by Jerardo Trammell > 01/09/21 [id number]
== END ==
LOC: M SOG 13:43
PROVIDERS: ATTEND Orthopaedic Surgery Sports Medicine
DX: M25.571 Pain in right ankle and joints of right foot (principal)

== ENCOUNTER → 2021-01-27 | Outpatient (CLI) | payer BC ==
--- NOTE | 2021-01-27 15:56 | REP ---
INDICATION: OSTEOCHONDRITIS DISSECANS, R ANKLE AND JOINTS OF R. COMPARISON: Radiographs 01/09/2021. TECHNIQUE: Multiple sequences are obtained in the axial, coronal and sagittal planes. FINDINGS: The Achilles, anterior tibial, posterior tibial, flexor hallucis longus, flexor digitorum longus and peroneal tendons are all intact without significant tenosynovitis. The anterior and posterior talofibular, calcaneofibular and deltoid ligaments appear intact. Plantar tendon appears intact. There is no plantar fasciitis. Sinus tarsi appears unremarkable. No ganglion cyst is seen. There is a small joint effusion. The lateral talar dome demonstrates mild to moderate variable cartilaginous thinning. There is a large complex subchondral cyst in the lateral talar dome. This measures approximately 2.4 x 1.5 x 1.3 cm. There is a thin well-defined low signal rim. There is diffuse marrow edema throughout the talus. IMPRESSION: No evidence of tendon or ligament tear. Variable mild to moderate cartilaginous thinning of the lateral talar dome. Large underlying complex subchondral cyst measuring 2.4 x 1.5 x 1.3 cm, with diffuse marrow edema throughout the talus. Small joint effusion. <Electronically signed by Jerardo Trammell > 01/27/21 [id number]
== END ==
LOC: M PLAIMG 14:44
PROVIDERS: ATTEND Orthopaedic Surgery Sports Medicine
DX: M93.271 Osteochondritis dissecans, right ankle and joints of right foot (principal); M25.471 Effusion, right ankle; M85.671 Other cyst of bone, right ankle and foot

== ENCOUNTER → 2021-10-11 | Outpatient (CLI) | payer BC ==
[~2021-10-11] MED LIST changes: -OMEP-221; +OMEP40CA5
[2021-10-11 13:47] LABS: ALBUMIN 4.1 GM/DL (3.2-5.2); ALT/SGPT 31 U/L (12-78); BILIRUBIN,TOTAL 0.8 MG/DL (0.2-1.0); BLOOD UREA NITROGEN 12 MG/DL (7-18); CALCIUM LEVEL 8.7 MG/DL (8.5-10.1); CARBON DIOXIDE LEVEL 29 MEQ/L (21-32); CHLORIDE LEVEL 107 MEQ/L (98-107); CHOLESTEROL LEVEL 155 MG/DL (<200); CHOLESTEROL RISK RATIO 2.183 (<5); CREATININE FOR GFR 0.66 MG/DL (0.55-1.30); GLOMERULAR FILTRATION RATE > 60.0 (>60); GLUCOSE, FASTING 76 MG/DL (70-100); HDL CHOLESTEROL 71 MG/DL (>40); LDL CHOLESTEROL 77 MG/DL (<100); NON-HDL-C 84 MG/DL; POTASSIUM SERUM 4.1 MEQ/L (3.5-5.1); SODIUM LEVEL 139 MEQ/L (136-145); TOTAL PROTEIN 6.7 GM/DL (6.4-8.2); TRIGLYCERIDES LEVEL 35 MG/DL (<150)
[2021-10-11 14:44] LABS: HEMOGLOBIN A1c 4.7 %
[2021-10-11 19:19] LABS: TOTAL 25(OH) VITAMIN D 31.4 NG/ML (30.0-100.0)
== END ==
LOC: M PLALAB 09:36
PROVIDERS: ATTEND Family Medicine
DX: E55.9 Vitamin D deficiency, unspecified (principal); Z13.220 Encounter for screening for lipoid disorders; Z13.1 Encounter for screening for diabetes mellitus

== ENCOUNTER → 2021-10-25 | Outpatient (CLI) | payer BC | LOC: M WHC 14:59 | PROVIDERS: ATTEND Family Medicine | DX: Z80.51 Family history of malignant neoplasm of kidney (principal) ==

== ENCOUNTER → 2022-04-12 | Outpatient (REF) | payer BC | LOC: M SFHCPLAZ 10:16 | PROVIDERS: ATTEND Family Medicine | DX: R00.2 Palpitations (principal); Z53.8 Procedure and treatment not carried out for other reasons ==

== ENCOUNTER → 2022-04-18 | Outpatient (CLI) | payer BC ==
[2022-04-18 14:15] LABS: HEMATOCRIT 41.4 % (36.0-47.0); HEMOGLOBIN 13.1 g/dl (12.0-15.5); MEAN CORPUSCULAR HEMOGLOBIN 28.9 pg (27.0-33.0); MEAN CORPUSCULAR HGB CONC 31.6 g/dl (32.0-36.5); MEAN CORPUSCULAR VOLUME 91.4 fl (80.0-96.0); PLATELET COUNT, AUTOMATED 193 10^3/uL (150-450); RED BLOOD COUNT 4.53 10^6/uL (4.00-5.40); WHITE BLOOD COUNT 3.7 10^3/uL (4.0-10.0)
== END ==
LOC: M PLALAB 09:48
PROVIDERS: ATTEND Family Medicine
DX: R00.2 Palpitations (principal)

== ENCOUNTER → 2022-08-10 | Outpatient (CLI) | payer BC | LOC: M PLALAB 08:42 | PROVIDERS: ATTEND Physician Assistant | DX: F41.1 Generalized anxiety disorder (principal) ==

== ENCOUNTER → 2023-04-03 | Outpatient (REF) | payer BC | LOC: M SFHCWAGY 12:59 | PROVIDERS: ATTEND Nurse Practitioner Family | DX: R10.2 Pelvic and perineal pain (principal); Z12.4 Encounter for screening for malignant neoplasm of cervix; Z01.419 Encounter for gynecological examination (general) (routine) without abnormal findings; Z77.9 Other contact with and (suspected) exposures hazardous to health ==

== ENCOUNTER → 2023-04-15 | Outpatient (CLI) | payer BC | LOC: M WHC 10:41 | PROVIDERS: ATTEND Nurse Practitioner Family | DX: N20.0 Calculus of kidney (principal); N83.201 Unspecified ovarian cyst, right side; N83.202 Unspecified ovarian cyst, left side ==

== ENCOUNTER → 2023-06-19 | Outpatient (CLI) | payer BC | LOC: M WHC 12:58 | PROVIDERS: ATTEND Nurse Practitioner Family | DX: N83.202 Unspecified ovarian cyst, left side (principal) ==

== ENCOUNTER → 2023-12-11 | Outpatient (CLI) | payer BC | LOC: M SOG 07:55 | PROVIDERS: ATTEND Physician Assistant | DX: M25.561 Pain in right knee (principal) ==

== ENCOUNTER → 2024-01-15 | Outpatient (CLI) | payer BC | LOC: M PLAIMG 06:45 | PROVIDERS: ATTEND Physician Assistant | DX: M25.561 Pain in right knee (principal) ==

== ENCOUNTER → 2024-02-13 | Outpatient (CLI) | payer BC | LOC: M PLALAB 12:38 | PROVIDERS: ATTEND Orthopaedic Surgery | DX: M25.561 Pain in right knee (principal) ==

== ENCOUNTER → 2024-03-31 | Outpatient (CLI) | payer BC ==
[2024-03-31 15:39] LABS: PROLACTIN 2.81 NG/ML; THYROID STIMULATING HORMONE 0.971 uIU/ML (0.55-4.78)
[2024-03-31 15:40] LABS: FREE T4 1.52 NG/DL (0.89-1.76)
== END ==
LOC: M PLALAB 11:22
PROVIDERS: ATTEND Nurse Practitioner Family
DX: N64.3 Galactorrhea not associated with childbirth (principal)

== ENCOUNTER → 2024-05-20 | Outpatient (CLI) | payer BC | LOC: M WHC 10:04 | PROVIDERS: ATTEND Nurse Practitioner Family | DX: N64.4 Mastodynia (principal); N64.3 Galactorrhea not associated with childbirth; R92.333 Mammographic heterogeneous density, bilateral breasts | CPT/HCPCS: 77066; G0279 ==

== ENCOUNTER → 2024-10-06 | Outpatient (CLI) | payer BC ==
[2024-10-06 15:23] LABS: HEMATOCRIT 40.2 % (36.0-47.0); HEMOGLOBIN 13.2 g/dl (12.0-15.5); MEAN CORPUSCULAR HEMOGLOBIN 29.7 pg (27.0-33.0); MEAN CORPUSCULAR HGB CONC 32.8 g/dl (32.0-36.5); MEAN CORPUSCULAR VOLUME 90.5 fl (80.0-96.0); PLATELET COUNT, AUTOMATED 165 10^3/uL (150-450); RED BLOOD COUNT 4.44 10^6/uL (4.00-5.40)
[2024-10-06 15:29] LABS: ALBUMIN 4.6 G/DL (3.2-5.2); ALKALINE PHOSPHATASE 39 U/L (35-104); ALT/SGPT 23 U/L (7.0-40); AST/SGOT 18 U/L (<34); BILIRUBIN,TOTAL 0.7 MG/DL (0.3-1.2); BLOOD UREA NITROGEN 14 MG/DL (9-23); CARBON DIOXIDE LEVEL 29 MMOL/L (20-31); CHLORIDE LEVEL 106 MMOL/L (98-107); CHOLESTEROL LEVEL 160 MG/DL (<200); CHOLESTEROL RISK RATIO 2.33 (<5); CREATININE FOR GFR 0.72 MG/DL (0.55-1.30); GLOMERULAR FILTRATION RATE > 90.0 (>60); GLUCOSE, FASTING 83 MG/DL (60-100); HDL CHOLESTEROL 68.5 MG/DL (>40); LDL CHOLESTEROL 83.3 MG/DL (<100); NON-HDL-C 91.5 MG/DL; POTASSIUM SERUM 4.1 MMOL/L (3.5-5.1); SODIUM LEVEL 142 MMOL/L (136-145); TOTAL PROTEIN 6.7 G/DL (5.7-8.2); TRIGLYCERIDES LEVEL 41 MG/DL (<150)
[2024-10-06 15:31] LABS: APPEARANCE, URINE CLEAR (CLEAR); BACTERIA, URINE AUTO NEGATIVE (NEGATIVE); BILIRUBIN, URINE AUTO NEGATIVE (NEGATIVE); BLOOD, URINE BLOOD NEGATIVE (NEGATIVE); COLOR, URINE STRAW (YELLOW); GLUCOSE, URINE (UA) AUTO NEGATIVE (NEGATIVE); KETONE, URINE AUTO NEGATIVE (NEGATIVE); LEUKOCYTE ESTERASE, URINE AUTO NEGATIVE (NEGATIVE); NITRITE, URINE AUTO NEGATIVE (NEGATIVE); PROTEIN, URINE AUTO NEGATIVE (NEGATIVE); RBC, URINE AUTO 0 /HPF (0-3); SPECIFIC GRAVITY URINE AUTO 1.006 (1.002-1.035); SQUAMOUS EPITHELIAL CELL UR AU 0 /HPF (0-6); UROBILINOGEN, URINE AUTO 0.2 mg/dL (0.0-2.0); WBC, URINE AUTO 0 /HPF (0-3)
== END ==
LOC: M PLALAB 12:15
PROVIDERS: ATTEND Family Medicine
DX: Z00.00 Encounter for general adult medical examination without abnormal findings (principal)

== ENCOUNTER → 2025-01-06 | Outpatient (CLI) | payer BC | LOC: M PLALAB 10:27 | PROVIDERS: ATTEND Student in an Organized Health Care Education/Training Program | DX: M54.2 Cervicalgia (principal) ==

== ENCOUNTER → 2025-04-12 | Outpatient (CLI) | payer BC | LOC: M PLAIMG 12:34 | PROVIDERS: ATTEND Nurse Practitioner Family | DX: Z12.4 Encounter for screening for malignant neoplasm of cervix (principal); K59.00 Constipation, unspecified; Z77.9 Other contact with and (suspected) exposures hazardous to health | CPT/HCPCS: 74018; 87624; G0123 ==

== ENCOUNTER → 2025-05-31 | Outpatient (CLI) | payer BC | LOC: M WHC 08:43 | PROVIDERS: ATTEND Nurse Practitioner Family | DX: Z12.31 Encounter for screening mammogram for malignant neoplasm of breast (principal) ==